=== PATIENT | female | born 1935 | race Caucasian/White ===

== ENCOUNTER 2021-08-18 23:11 | Inpatient (IN) | payer MEDICARE, OTHER ==
[~2021-08-18] VITALS: Ht 157.5 cm; Wt 62.2 kg
[~2021-08-18 23:11] MED LIST: ASCO500T85 PO; ASPI81TA44 PO; CALC-1026 PO; CHOL50004 PO; CLOP75TA15 PO; DULO60CA45 PO; ISOS30TA9 PO; METO25TA6 PO; MULT1TAB PO; OMEG10006 PO; QUET25TA3 PO; ROSU20TA2 PO; SPIRIVA; [UNRECOGNIZED DRUG - CODE] TL
[2021-08-18] MEDS ORDERED: ACETAMINOPHEN ES 500 MG TABLET PO ONE (23:30)
--- NOTE | 2021-08-18 23:46 | NUR ---
LAB AT BEDSIDE.
[2021-08-18] MEDS ORDERED: ACETAMINOPHEN ES 500 MG TABLET ONE (23:47)
[2021-08-18] MEDS ORDERED: METO-357 PO (23:52)
[2021-08-18] MEDS ORDERED: LEVO25TA9 PO (23:52)
[2021-08-18] MEDS ORDERED: MAGN400C PO (23:52)
[2021-08-18] MEDS ORDERED: APIX2.5T PO (23:52)
[2021-08-18] MEDS ORDERED: OMEG1CAP PO (23:52)
[2021-08-18] MEDS ORDERED: CALC-1276 PO (23:52)
[2021-08-18] MEDS ORDERED: ISOS60TA72 PO (23:52)
[2021-08-18] MEDS ORDERED: METH1TAB69 PO (23:52)
[2021-08-18] MEDS ORDERED: POTA-194 PO (23:52)
[2021-08-18] MEDS ORDERED: estradiol TOP (23:52)
[2021-08-18] MEDS ORDERED: QUET100T PO (23:52)
[2021-08-18] MEDS ORDERED: ACET-73 PO (23:52)
[2021-08-18] MEDS ORDERED: ZINC1CAP3 PO (23:52)
[2021-08-18] MEDS ORDERED: FERR325T24 PO (23:52)
[2021-08-18] MEDS ORDERED: FURO20TA4 PO (23:52)
[2021-08-18] MEDS ORDERED: POLY17PO4 PO (23:52)
[2021-08-18] MEDS ORDERED: ESOM40CA52 PO (23:52)
[2021-08-18] MEDS ORDERED: GABA-532 PO ×2 (23:52)
[2021-08-18] MEDS ORDERED: TRAM50TA2 PO (23:52)
[2021-08-18] MEDS ORDERED: FOLI1TAB94 PO (23:52)
[2021-08-18] MEDS ORDERED: BUME1TAB8 PO (23:52)
[2021-08-18] MEDS ORDERED: DOCU100C36 PO (23:52)
[2021-08-18] MEDS ORDERED: FLUT16SP16 NS (23:52)
[2021-08-18] MEDS ORDERED: LEVO500T90 PO (23:56)
[2021-08-19] VITALS (7 sets, daily range): BP systolic 92–118; BP diastolic 45–68
[2021-08-19 00:12] LABS: MEAN CORPUSCULAR HEMOGLOBIN 29.1 uug (24.7-32.8); MEAN CORPUSCULAR VOLUME 87.7 fL (75.5-95.3); PLATELET COUNT (AUTO) 220 K/uL (179-408)
[2021-08-19 00:39] LABS: CARBON DIOXIDE 25 mmol/L (21-32); CHLORIDE 101 mmol/L (98-107); CREATININE 1.3 mg/dL (0.6-1.3); GLUCOSE 92 mg/dL (74-106); POTASSIUM 4.5 mmol/L (3.5-5.1); UREA NITROGEN, BLOOD 19 mg/dL (7-18)
[2021-08-19 00:52] LABS: ALANINE AMINOTRANSFERASE 19 U/L (14-59); ALKALINE PHOSPHATASE 94 U/L (50-136); ASPARTATE AMINOTRANSFERASE 19 U/L (15-37); BILIRUBIN,DIRECT 0.4 mg/dL (0.0-0.2)
[2021-08-19] MEDS ORDERED: CEFTRIAXONE 1 G in IV DEXTROSE 5% 50 ML IV ONE (01:00)
[2021-08-19 01:51] LABS: *BILIRUBIN,URIN NEGATIVE (NEGATIVE); *CLARITY,URINE CLEAR (CLEAR); *COLOR,URINE YELLOW (YELLOW); *KETONES,URINE TRACE (NEGATIVE); *UROBILINOGEN,URINE 0.2 E.U./dl (NORMAL); LEUKOCYTE ESTERASE ,URINE 1+ (NEGATIVE); NITRITE, URINE POSITIVE (NEGATIVE); PH,URINE 6.5 (5.0-8.0); UGLUCOSE NEGATIVE (NEGATIVE)
[2021-08-19 01:52] LABS: *BLOOD, URINE TRACE (NEGATIVE)
[2021-08-19 02:01] LABS: BACTERIA,URINE MANY /HPF (NONE SEEN); SQUAMOUS EPITHELIAL CELL,UR MODERATE /HPF (NONE SEEN); WBC,URINE TNTC /HPF (0-3)
[2021-08-19] MEDS ORDERED: CEFTRIAXONE /D5W 50ML IVPB **ER PYXIS IV ONE (02:03)
--- NOTE | 2021-08-19 03:01 | NUR ---
SIRENA PA PAGED FOR PANEL CALL.
[2021-08-19] MEDS ORDERED: ONDANSETRON 4 MG/2 ML VIAL IV PRN (03:15)
[2021-08-19] MEDS ORDERED: TRAMADOL HCL 50 MG TABLET PO PRN (03:15)
[2021-08-19] MEDS: FUROSEMIDE 40 MG/4 ML VIAL IV ONE ×2 (03:15→07:24)
[2021-08-19] MEDS ORDERED: MAGNESIUM HYDROXIDE 30 ML LIQUID UDC PO PRN (03:15)
[2021-08-19] MEDS ORDERED: REMEDY ESSENTIAL ZINC PASTE 113 GM TP PRN (03:15)
--- NOTE | 2021-08-19 03:39 | NUR ---
GAVE REPORT TO
[2021-08-19] MEDS ORDERED: MAGNESIUM OXIDE 400 MG TABLET PO PRN (04:30)
--- NOTE | 2021-08-19 04:30 | NUR ---
Pt. admitted to tele CCU overflow , under care of NPO Porfirio Dougherty Belongs List completed Pt admitted in stable condition, denied any pain/discomfort upon discharge. VSS. No changes in LOC.
--- NOTE | 2021-08-19 04:39 | NUR ---
received patient from ER DX: ACUTE CHF AND UTI. patient aaox4 verbally responsive and cooperative . afebrile 98.7 F orally . on room air saturation 95% rr 21. afib on the heart monitor rate 93 denies chest pain or discomfort . admitted patient data collected from patient and patient history . belongings at b/s with patient .
--- NOTE | 2021-08-19 05:00 | NUR ---
photo taken on patient sacral area ,near the rectum with redness .she said she just finished using the bedpan . photo taken and wound care consulted .
[2021-08-19] MEDS: LEVOTHYROXINE SODIUM 25 MCG TABLET PO SCH (06:14)
[2021-08-19] MEDS: PANTOPRAZOLE SODIUM 40 MG TABLET.DR PO SCH (06:14)
--- NOTE | 2021-08-19 06:21 | NUR ---
given po medication tolerated with water .
--- NOTE | 2021-08-19 06:58 | NUR ---
called pharmacy c/o missing Lasix patient a new admit from ER as per pharmacy she will have the ordnance engineering technician bring it .
--- NOTE | 2021-08-19 07:28 | NUR ---
patient refused Lasix as per patient it drops her blood pressure and prefers to have Bumex instead endorsed to day shift rn .
[2021-08-19] MEDS: METOPROLOL SUCCINATE XL 50 MG TAB.SR.24H PO SCH ×2 (09:00→17:32)
[2021-08-19] MEDS: APIXABAN 2.5 MG TABLET PO SCH ×2 (09:00→17:00)
[2021-08-19] MEDS ORDERED: Methenamine Hippurate 1 GM) PO SCH (09:00)
[2021-08-19] MEDS: FLUTICASONE PROP NASAL SPRAY 16 GM BOTTLE NS SCH (09:37)
[2021-08-19] MEDS: DULOXETINE 60 MG CAPSULE.DR PO SCH (09:37)
[2021-08-19] MEDS: DOCUSATE SODIUM 100 MG CAPSULE PO SCH ×2 (09:37→17:14)
[2021-08-19] MEDS: FOLIC ACID 1 MG TABLET PO SCH (09:38)
[2021-08-19] MEDS: OMEGA-3 FATTY ACIDS/FISH OIL CAPSULE PO SCH ×2 (09:38→17:14)
[2021-08-19] MEDS: MIRALAX 17 GM POWD.PACK PO SCH (09:48)
[2021-08-19] MEDS: CALCIUM CARB/VITAMIN D 500MG-200UNITS TABLET PO SCH (09:49)
[2021-08-19] MEDS: ZINC SULFATE 220 MG CAPSULE PO SCH (09:49)
[2021-08-19] MEDS: CLOPIDOGREL 75 MG TABLET PO SCH (09:49)
[2021-08-19] MEDS: GABAPENTIN 100 MG CAPSULE PO SCH ×2 (09:52→21:07)
[2021-08-19] MEDS: ISOSORBIDE MONONITRATE 60 MG TAB.SR.24H PO SCH (09:54)
--- NOTE | 2021-08-19 12:46 | NUR ---
WOUND CARE CONSULT: PT EATING AT THIS TIME. REVIEWED CHART, NURSING DOCUMENTATION AND PHOTO WHICH INDICATES PERIANAL REDNESS, PRESENT ON ADMISSION. RECOMMENDATIONS MADE FOR SKIN PROTECTION. DISCUSSED WITH NURSING STAFF. MD IN AGREEMENT WITH PLAN OF CARE. MD IN AGREEMENT WITH PLAN OF CARE.
--- NOTE | 2021-08-19 19:45 | NUR ---
patient had a large BM form stool ,brownish and blackish in color . changed soiled linens and gown incontinent of urine . perineal care done. z guard applied to sacral and bilateral groin area . oral care done . patient able to brush teeth . v/s done wnl .call light placed with in reach . advised to call for help .
[2021-08-19] MEDS: QUETIAPINE FUMARATE 100 MG TABLET PO SCH (21:08)
[2021-08-19] MEDS: ATORVASTATIN 40 MG TABLET PO SCH (21:13)
--- NOTE | 2021-08-19 22:35 | NUR ---
called EPIC service c/o patient afib rate 129 to 145 , patient asymptomatic she is sleeping in bed . no s/s of respiratory distress denies chest pain .spoked with DR:SANCHO SOSA to start patient on amiodarone drip with bolus .
[2021-08-19] MEDS ORDERED: AMIODARONE HCL IV 150 MG in IV DEXTROSE 5% 100 ML IV ONE (22:45)
[2021-08-19] MEDS ORDERED: AMIODARONE HCL 150 MG/3 ML VIAL IV ONE ×2 (22:58→22:59)
[2021-08-19] MEDS: AMIODARONE HCL IV 450 MG in IV DEXTROSE 5% 250 ML IV PRN (23:22)
[2021-08-20] VITALS (8 sets, daily range): BP systolic 98–129; BP diastolic 40–71
[2021-08-20] MEDS: CEFTRIAXONE 1 G in IV DEXTROSE 5% 50 ML IV SCH (02:17)
[2021-08-20 05:45] LABS: HEMATOCRIT 28.3 % (31.2-41.9); MEAN CORPUSCULAR HEMOGLOBIN 28.8 uug (24.7-32.8); MEAN CORPUSCULAR VOLUME 86.9 fL (75.5-95.3); PLATELET COUNT (AUTO) 198 K/uL (179-408)
[2021-08-20 06:03] LABS: NEUTROPHILS % (MANUAL) 0 % (42-75)
[2021-08-20 06:08] LABS: CREATININE 1.1 mg/dL (0.6-1.3); MAGNESIUM 1.8 mg/dL (1.8-2.4); POTASSIUM 3.6 mmol/L (3.5-5.1)
[2021-08-20] MEDS: PANTOPRAZOLE SODIUM 40 MG TABLET.DR PO SCH (06:42)
[2021-08-20] MEDS: LEVOTHYROXINE SODIUM 25 MCG TABLET PO SCH (06:42)
[2021-08-20] MEDS: FLUTICASONE PROP NASAL SPRAY 16 GM BOTTLE NS SCH (09:34)
[2021-08-20] MEDS: DULOXETINE 60 MG CAPSULE.DR PO SCH (09:35)
[2021-08-20] MEDS: OMEGA-3 FATTY ACIDS/FISH OIL CAPSULE PO SCH ×2 (09:35→17:30)
[2021-08-20] MEDS: DOCUSATE SODIUM 100 MG CAPSULE PO SCH ×2 (09:36→17:30)
[2021-08-20] MEDS: FOLIC ACID 1 MG TABLET PO SCH (09:37)
[2021-08-20] MEDS: CALCIUM CARB/VITAMIN D 500MG-200UNITS TABLET PO SCH (09:39)
[2021-08-20] MEDS: GABAPENTIN 100 MG CAPSULE PO SCH ×2 (09:39→20:23)
[2021-08-20] MEDS: MIRALAX 17 GM POWD.PACK PO SCH (09:39)
[2021-08-20] MEDS: CLOPIDOGREL 75 MG TABLET PO SCH (09:40)
[2021-08-20] MEDS: ISOSORBIDE MONONITRATE 60 MG TAB.SR.24H PO SCH (09:47)
[2021-08-20] MEDS: ZINC SULFATE 220 MG CAPSULE PO SCH (09:47)
[2021-08-20] MEDS: METOPROLOL SUCCINATE XL 50 MG TAB.SR.24H PO SCH ×2 (09:47→17:31)
[2021-08-20] MEDS: APIXABAN 2.5 MG TABLET PO SCH ×2 (10:01→17:35)
[2021-08-20] MEDS: AMIODARONE HCL IV 450 MG in IV DEXTROSE 5% 250 ML IV PRN ×2 (16:16→20:19)
--- NOTE | 2021-08-20 19:30 | NUR ---
round made patient aaox3.on amiodarone drip to follow protocol ,afib on the heart monitor rate 82 denies chest or discomfort . patient watching tv.
[2021-08-20] MEDS: QUETIAPINE FUMARATE 100 MG TABLET PO SCH (20:23)
[2021-08-20] MEDS: ATORVASTATIN 40 MG TABLET PO SCH (20:23)
--- NOTE | 2021-08-20 21:00 | NUR ---
patient wants to brush her teeth ,assisted . oral care done . upper and lower partial denture soak overnight placed in denture cup .
--- NOTE | 2021-08-21 00:26 | NUR ---
as per monitoring and evaluation advisor patient converted to sinus rhythm rate of 71, will continue to monitor heart rate and rhythm patient in bed asleep . no s/s of pain .
[2021-08-21] MEDS: CEFTRIAXONE 1 G in IV DEXTROSE 5% 50 ML IV SCH (01:50)
[2021-08-21 04:30] VITALS: BP 103/48
[2021-08-21] MEDS: LEVOTHYROXINE SODIUM 25 MCG TABLET PO SCH (06:08)
[2021-08-21] MEDS: PANTOPRAZOLE SODIUM 40 MG TABLET.DR PO SCH (06:08)
[2021-08-21 08:00] VITALS: BP 118/48
[2021-08-21] MEDS: CLOPIDOGREL 75 MG TABLET PO SCH (08:22)
[2021-08-21] MEDS: OMEGA-3 FATTY ACIDS/FISH OIL CAPSULE PO SCH ×2 (08:23→17:08)
[2021-08-21] MEDS: GABAPENTIN 100 MG CAPSULE PO SCH ×2 (08:23→21:08)
[2021-08-21] MEDS: FOLIC ACID 1 MG TABLET PO SCH (08:23)
[2021-08-21] MEDS: DOCUSATE SODIUM 100 MG CAPSULE PO SCH ×2 (08:23→17:07)
[2021-08-21] MEDS: DULOXETINE 60 MG CAPSULE.DR PO SCH (08:23)
[2021-08-21] MEDS: CALCIUM CARB/VITAMIN D 500MG-200UNITS TABLET PO SCH (08:23)
[2021-08-21] MEDS: ACETAMINOPHEN 325 MG TABLET PO PRN ×2 (08:23→17:08)
[2021-08-21] MEDS: APIXABAN 2.5 MG TABLET PO SCH ×2 (08:24→17:08)
[2021-08-21] MEDS: ZINC SULFATE 220 MG CAPSULE PO SCH (08:34)
[2021-08-21] MEDS: MIRALAX 17 GM POWD.PACK PO SCH (08:34)
[2021-08-21] MEDS: FLUTICASONE PROP NASAL SPRAY 16 GM BOTTLE NS SCH (08:36)
[2021-08-21] MEDS: ISOSORBIDE MONONITRATE 60 MG TAB.SR.24H PO SCH (08:37)
[2021-08-21] MEDS: METOPROLOL SUCCINATE XL 50 MG TAB.SR.24H PO SCH ×2 (08:38→17:08)
[2021-08-21] MEDS: AMIODARONE HCL 200 MG TABLET PO SCH (11:39)
[2021-08-21 11:58] VITALS: BP 120/49
[2021-08-21 16:44] VITALS: BP 117/75
[2021-08-21 20:00] VITALS: BP 122/51
[2021-08-21] MEDS: ATORVASTATIN 40 MG TABLET PO SCH (21:08)
[2021-08-21] MEDS: QUETIAPINE FUMARATE 100 MG TABLET PO SCH (21:09)
[2021-08-22] VITALS (7 sets, daily range): BP systolic 111–137; BP diastolic 45–50
[2021-08-22] MEDS: CEFTRIAXONE 1 G in IV DEXTROSE 5% 50 ML IV SCH (01:15)
[2021-08-22] MEDS: LEVOTHYROXINE SODIUM 25 MCG TABLET PO SCH (06:03)
[2021-08-22] MEDS: PANTOPRAZOLE SODIUM 40 MG TABLET.DR PO SCH (06:03)
[2021-08-22 06:43] LABS: HEMATOCRIT 27.4 % (31.2-41.9); MEAN CORPUSCULAR HEMOGLOBIN 28.2 uug (24.7-32.8); MEAN CORPUSCULAR VOLUME 86.4 fL (75.5-95.3); PLATELET COUNT (AUTO) 226 K/uL (179-408)
[2021-08-22 06:57] LABS: CREATININE 1.1 mg/dL (0.6-1.3); MAGNESIUM 2.2 mg/dL (1.8-2.4); PHOSPHOROUS 3.8 mg/dL (2.5-4.9); POTASSIUM 4.2 mmol/L (3.5-5.1)
[2021-08-22] MEDS: DULOXETINE 60 MG CAPSULE.DR PO SCH (08:52)
[2021-08-22] MEDS: FOLIC ACID 1 MG TABLET PO SCH (08:52)
[2021-08-22] MEDS: CLOPIDOGREL 75 MG TABLET PO SCH (08:52)
[2021-08-22] MEDS: ISOSORBIDE MONONITRATE 60 MG TAB.SR.24H PO SCH (08:52)
[2021-08-22] MEDS: CALCIUM CARB/VITAMIN D 500MG-200UNITS TABLET PO SCH (08:52)
[2021-08-22] MEDS: APIXABAN 2.5 MG TABLET PO SCH ×2 (08:53→15:59)
[2021-08-22] MEDS: OMEGA-3 FATTY ACIDS/FISH OIL CAPSULE PO SCH ×2 (08:53→16:03)
[2021-08-22] MEDS: AMIODARONE HCL 200 MG TABLET PO SCH (08:53)
[2021-08-22] MEDS: DOCUSATE SODIUM 100 MG CAPSULE PO SCH ×2 (08:54→16:03)
[2021-08-22] MEDS: METOPROLOL SUCCINATE XL 50 MG TAB.SR.24H PO SCH ×2 (08:54→15:59)
[2021-08-22] MEDS: ZINC SULFATE 220 MG CAPSULE PO SCH (08:54)
[2021-08-22] MEDS: FLUTICASONE PROP NASAL SPRAY 16 GM BOTTLE NS SCH (08:55)
[2021-08-22] MEDS: GABAPENTIN 100 MG CAPSULE PO SCH (08:58)
[2021-08-22] MEDS: MIRALAX 17 GM POWD.PACK PO SCH (08:58)
[2021-08-22] MEDS ORDERED: BUMETANIDE 1 MG TABLET PO SCH (15:00)
--- NOTE | 2021-08-22 16:54 | NUR ---
PT accepted to ARU. PT is in no acute distress. Call light is within reach. Discharge instructions given to patient. Pt verbalized understanding. IV on left f/a intact and will be left on secondary to pt will continue IV ABX in ARU. Call light is within reach.
[2021-08-22] MEDS ORDERED: MAGN400O6 PO (18:28)
[2021-08-22] MEDS ORDERED: ISOS30TA86 PO (18:28)
[2021-08-22] MEDS ORDERED: AMIO200T5 PO (18:28)
[2021-08-22] MEDS ORDERED: CEFT1VIA15 IV (18:28)
[2021-08-22] MEDS ORDERED: ATOR40TA PO (18:28)
[2021-08-22] MEDS ORDERED: DOCU100C36 PO (18:28)
[2021-08-22] MEDS ORDERED: PANT40TA2 PO (18:32)
== END 2021-08-22 17:00 | DRG 872 ==
LOC: ER 23:25 → CCU 08-19 04:09 → TELE-TD3 08-20 05:50 → MEDSURG3 08-22 10:50
PROVIDERS: ADMIT Nurse Practitioner Acute Care
DX: A41.9 Sepsis, unspecified organism (principal); N39.0 Urinary tract infection, site not specified; N10 Acute pyelonephritis; J98.11 Atelectasis; E66.9 Obesity, unspecified; E78.5 Hyperlipidemia, unspecified; E88.09 Other disorders of plasma-protein metabolism, not elsewhere classified; F32.A Depression, unspecified; K21.9 Gastro-esophageal reflux disease without esophagitis; R32 Unspecified urinary incontinence; Z87.440 Personal history of urinary (tract) infections; J44.9 Chronic obstructive pulmonary disease, unspecified; R53.1 Weakness; M19.90 Unspecified osteoarthritis, unspecified site; M06.9 Rheumatoid arthritis, unspecified; Z68.25 Body mass index [BMI] 25.0-25.9, adult; I10 Essential (primary) hypertension; I35.1 Nonrheumatic aortic (valve) insufficiency; Z98.61 Coronary angioplasty status; R93.1 Abnormal findings on diagnostic imaging of heart and coronary circulation; I48.0 Paroxysmal atrial fibrillation
CPT/HCPCS: 36415; 70030-TC; 71045; 76770; 83605; 83735; 84100; 84484; 85025; 87040; 87086; 93005; 93307; 97161; A4663; A9150; G0378; J0282; J0696; J1940; J3535; J7050

== ENCOUNTER 2021-08-22 17:42 | Inpatient (IN) | payer MEDICARE, OTHER ==
[~2021-08-22] VITALS: Ht 157.5 cm; Wt 59.4 kg
[~2021-08-22 17:42] MED LIST changes: +ACET-73 PO; +APIX2.5T PO; -ASCO500T85 PO; -ASPI81TA44 PO; +BUME1TAB8 PO; -CALC-1026 PO; +CALC-1276 PO; -CHOL50004 PO; +DOCU100C36 PO; +ESOM40CA52 PO; +FERR325T24 PO; +FLUT16SP16 NS; +FOLI1TAB94 PO; +FURO20TA4 PO; +GABA-532 PO; -ISOS30TA9 PO; +ISOS60TA72 PO; +LEVO25TA9 PO; +LEVO500T90 PO; +MAGN400C PO; +METH1TAB69 PO; +METO-357 PO; -METO25TA6 PO; -MULT1TAB PO; -OMEG10006 PO; +OMEG1CAP PO; +POLY17PO4 PO; +POTA-194 PO; +QUET100T PO; -QUET25TA3 PO; -SPIRIVA; +TRAM50TA2 PO; +ZINC1CAP3 PO; +estradiol TOP
[2021-08-22 17:49] VITALS: BP 151/61
[2021-08-22] MEDS ORDERED: AMIO200T5 PO (18:28)
[2021-08-22] MEDS ORDERED: ISOS30TA86 PO (18:28)
[2021-08-22] MEDS ORDERED: CEFT1VIA15 IV (18:28)
[2021-08-22] MEDS ORDERED: MAGN400O6 PO (18:28)
[2021-08-22] MEDS ORDERED: DOCU100C36 PO (18:28)
[2021-08-22] MEDS ORDERED: ATOR40TA PO (18:28)
[2021-08-22] MEDS ORDERED: PANT40TA2 PO (18:32)
[2021-08-22 20:00] VITALS: BP 127/44
[2021-08-22] MEDS ORDERED: MAGNESIUM HYDROXIDE 30 ML LIQUID UDC PO PRN (20:30)
[2021-08-22] MEDS ORDERED: ACETAMINOPHEN ES 500 MG TABLET PO PRN (20:30)
--- NOTE | 2021-08-22 20:30 | NUR ---
RECEIVED PATIENT AWAKE IN BED. A/O X3. VERY PLEASANT WHEN APPROACHED. DENIES ANY PAIN OR DISCOMFORT. NPO RESP. DISTRESS NOTED. VS WNL. BED ALARM ON. PUREWICK IN PLACE. CALL LIGHT IN REACH. ALL NEEDS ATTENDED. WILL CONTINUE TO MONITOR AND ASSESS.
[2021-08-22] MEDS: ATORVASTATIN 40 MG TABLET PO SCH (20:58)
[2021-08-22] MEDS: QUETIAPINE FUMARATE 100 MG TABLET PO SCH (20:59)
[2021-08-22] MEDS: GABAPENTIN 100 MG CAPSULE PO SCH (20:59)
[2021-08-23] MEDS: CEFTRIAXONE 1 G in IV DEXTROSE 5% 50 ML IV SCH (01:48)
[2021-08-23 04:06] VITALS: BP 111/48
[2021-08-23] MEDS: PANTOPRAZOLE SODIUM 40 MG TABLET.DR PO SCH ×2 (06:09→06:13)
[2021-08-23] MEDS: LEVOTHYROXINE SODIUM 25 MCG TABLET PO SCH (06:09)
--- NOTE | 2021-08-23 06:14 | NUR ---
PATIENT AWAKE IN BED. SLEPT WELL THROUGHOUT THE NIGHT. DENIES ANY PAIN OR DISCOMFORT. NO RESP. DISTRESS NOTED. VS WNL. PATIENT REFUSED TO TAKE PO PROTONIX AT THIS TIME. CALL LIGHT IN REACH. ALL NEEDS ATTENDED. WILL CONTINUE TO MONITOR AND ASSESS.
[2021-08-23 07:50] VITALS: BP 138/44
[2021-08-23] MEDS ORDERED: ISOSORBIDE MONONITRATE 30 MG TAB.SR.24H PO SCH (09:00)
[2021-08-23] MEDS ORDERED: DULOXETINE 60 MG CAPSULE.DR PO SCH (09:00)
[2021-08-23] MEDS ORDERED: DOCUSATE SODIUM 100 MG CAPSULE PO SCH (09:00)
[2021-08-23] MEDS: MIRALAX 17 GM POWD.PACK PO SCH (09:07)
[2021-08-23] MEDS: ZINC SULFATE 220 MG CAPSULE PO SCH (09:07)
[2021-08-23] MEDS: OMEGA-3 FATTY ACIDS/FISH OIL CAPSULE PO SCH ×2 (09:08→16:56)
[2021-08-23] MEDS: GABAPENTIN 100 MG CAPSULE PO SCH ×2 (09:08→20:58)
[2021-08-23] MEDS: ISOSORBIDE MONONITRATE 60 MG TAB.SR.24H PO SCH (09:08)
[2021-08-23] MEDS: CLOPIDOGREL 75 MG TABLET PO SCH (09:09)
[2021-08-23] MEDS: BUMETANIDE 1 MG TABLET PO SCH (09:09)
[2021-08-23] MEDS: CALCIUM CARB/VITAMIN D 500MG-200UNITS TABLET PO SCH (09:09)
[2021-08-23] MEDS: AMIODARONE HCL 200 MG TABLET PO SCH (09:09)
[2021-08-23] MEDS: FOLIC ACID 1 MG TABLET PO SCH (09:09)
[2021-08-23] MEDS: DOCUSATE SODIUM 100 MG CAPSULE PO SCH ×2 (09:09→16:56)
[2021-08-23] MEDS: METOPROLOL SUCCINATE XL 50 MG TAB.SR.24H PO SCH ×2 (09:10→21:04)
[2021-08-23] MEDS: FLUTICASONE PROP NASAL SPRAY 16 GM BOTTLE NS SCH (09:11)
[2021-08-23] MEDS: APIXABAN 2.5 MG TABLET PO SCH ×2 (09:13→17:04)
[2021-08-23] MEDS ORDERED: DULOXETINE 60 MG CAPSULE.DR PO ONE (10:15)
[2021-08-23 15:25] VITALS: BP 114/50
[2021-08-23 20:14] VITALS: BP 143/61
--- NOTE | 2021-08-23 20:45 | NUR ---
AAOx4 Admitted for Sepsis/UTI . All needs attended. VSS. Tolerated po meds well. Incontinent of bowel and bladder. Fall precautions maintained. Siderails up for safety. Will monitor IV ABT given as scheduled. No acute distress noted.
[2021-08-23] MEDS: ATORVASTATIN 40 MG TABLET PO SCH (20:58)
[2021-08-23] MEDS: QUETIAPINE FUMARATE 100 MG TABLET PO SCH (20:59)
[2021-08-24] MEDS: CEFTRIAXONE 1 G in IV DEXTROSE 5% 50 ML IV SCH (01:40)
[2021-08-24 04:33] VITALS: BP 136/56
[2021-08-24] MEDS: PANTOPRAZOLE SODIUM 40 MG TABLET.DR PO SCH (06:01)
[2021-08-24] MEDS: LEVOTHYROXINE SODIUM 25 MCG TABLET PO SCH (06:01)
[2021-08-24 08:13] VITALS: BP 143/48
[2021-08-24] MEDS: APIXABAN 2.5 MG TABLET PO SCH ×2 (08:14→16:52)
[2021-08-24] MEDS: ISOSORBIDE MONONITRATE 60 MG TAB.SR.24H PO SCH (08:16)
[2021-08-24] MEDS: BUMETANIDE 1 MG TABLET PO SCH (08:16)
[2021-08-24] MEDS: GABAPENTIN 100 MG CAPSULE PO SCH ×2 (08:16→20:32)
[2021-08-24] MEDS: METOPROLOL SUCCINATE XL 50 MG TAB.SR.24H PO SCH ×2 (08:17→20:31)
[2021-08-24] MEDS: CALCIUM CARB/VITAMIN D 500MG-200UNITS TABLET PO SCH (08:17)
[2021-08-24] MEDS: FOLIC ACID 1 MG TABLET PO SCH (08:17)
[2021-08-24] MEDS: AMIODARONE HCL 200 MG TABLET PO SCH (08:17)
[2021-08-24] MEDS: ZINC SULFATE 220 MG CAPSULE PO SCH (08:17)
[2021-08-24] MEDS: FLUTICASONE PROP NASAL SPRAY 16 GM BOTTLE NS SCH (08:18)
[2021-08-24] MEDS: OMEGA-3 FATTY ACIDS/FISH OIL CAPSULE PO SCH ×2 (08:18→16:51)
[2021-08-24] MEDS: CLOPIDOGREL 75 MG TABLET PO SCH (08:18)
[2021-08-24] MEDS: MIRALAX 17 GM POWD.PACK PO SCH (08:18)
[2021-08-24] MEDS: DOCUSATE SODIUM 100 MG CAPSULE PO SCH ×2 (08:18→16:51)
[2021-08-24] MEDS: DULOXETINE 60 MG CAPSULE.DR PO SCH (08:23)
--- NOTE | 2021-08-24 15:31 | NUR ---
INTERDISCIPLINARY TEAM CONFERENCE
[2021-08-24 16:01] VITALS: BP 136/53
--- NOTE | 2021-08-24 17:50 | NUR ---
no distress noted during shift, patient is noncompliant with diet instructions, risks and benefits explained, patient verbalized understanding of it, continue to monitor
[2021-08-24 20:06] VITALS: BP 108/44
[2021-08-24] MEDS: QUETIAPINE FUMARATE 100 MG TABLET PO SCH (20:29)
[2021-08-24] MEDS: ATORVASTATIN 40 MG TABLET PO SCH (20:29)
[2021-08-25] MEDS: CEFTRIAXONE 1 G in IV DEXTROSE 5% 50 ML IV SCH (01:13)
[2021-08-25 03:40] VITALS: BP 119/45
[2021-08-25] MEDS: PANTOPRAZOLE SODIUM 40 MG TABLET.DR PO SCH (06:22)
[2021-08-25] MEDS: LEVOTHYROXINE SODIUM 25 MCG TABLET PO SCH (06:22)
[2021-08-25 07:55] VITALS: BP 102/45
[2021-08-25] MEDS: MIRALAX 17 GM POWD.PACK PO SCH (08:27)
[2021-08-25] MEDS: BUMETANIDE 1 MG TABLET PO SCH (08:27)
[2021-08-25] MEDS: DULOXETINE 60 MG CAPSULE.DR PO SCH (08:28)
[2021-08-25] MEDS: OMEGA-3 FATTY ACIDS/FISH OIL CAPSULE PO SCH ×2 (08:28→16:28)
[2021-08-25] MEDS: GABAPENTIN 100 MG CAPSULE PO SCH ×2 (08:28→20:43)
[2021-08-25] MEDS: CALCIUM CARB/VITAMIN D 500MG-200UNITS TABLET PO SCH (08:28)
[2021-08-25] MEDS: DOCUSATE SODIUM 100 MG CAPSULE PO SCH ×2 (08:28→16:28)
[2021-08-25] MEDS: AMIODARONE HCL 200 MG TABLET PO SCH (08:37)
[2021-08-25] MEDS: METOPROLOL SUCCINATE XL 50 MG TAB.SR.24H PO SCH ×2 (08:37→20:42)
[2021-08-25] MEDS: APIXABAN 2.5 MG TABLET PO SCH ×2 (08:38→16:29)
[2021-08-25] MEDS: CLOPIDOGREL 75 MG TABLET PO SCH (08:38)
--- NOTE | 2021-08-25 08:40 | NUR ---
Received patient from priming machine operator nurse. Patient was sleeping. No distress noted and no verbalization of pain. Patient is having breakfast now.
[2021-08-25] MEDS: ZINC SULFATE 220 MG CAPSULE PO SCH (08:41)
[2021-08-25] MEDS: FOLIC ACID 1 MG TABLET PO SCH (08:43)
[2021-08-25] MEDS: FLUTICASONE PROP NASAL SPRAY 16 GM BOTTLE NS SCH (09:34)
[2021-08-25] MEDS: ISOSORBIDE MONONITRATE 60 MG TAB.SR.24H PO SCH (11:14)
[2021-08-25] MEDS: ENSURE ENLIVE (VAN) 240 ML LIQUID PO SCH (12:51)
--- NOTE | 2021-08-25 14:50 | NUR ---
INDIVIDUALIZED PLAN OF CARE
[2021-08-25 16:01] VITALS: BP 103/42
[2021-08-25] MEDS: ATORVASTATIN 40 MG TABLET PO SCH (20:42)
[2021-08-25] MEDS: QUETIAPINE FUMARATE 100 MG TABLET PO SCH (20:43)
[2021-08-25 20:54] VITALS: BP 128/69
[2021-08-26 04:46] VITALS: BP 101/36
[2021-08-26] MEDS: PANTOPRAZOLE SODIUM 40 MG TABLET.DR PO SCH (06:15)
[2021-08-26] MEDS: LEVOTHYROXINE SODIUM 25 MCG TABLET PO SCH (06:16)
--- NOTE | 2021-08-26 08:00 | NUR ---
Seen by DR Berumen with new order to change her diet to Regular Diet order. noted and carried out.
[2021-08-26 08:39] VITALS: BP 119/37
[2021-08-26] MEDS: FLUTICASONE PROP NASAL SPRAY 16 GM BOTTLE NS SCH (09:24)
[2021-08-26] MEDS: DULOXETINE 60 MG CAPSULE.DR PO SCH (09:24)
[2021-08-26] MEDS: ISOSORBIDE MONONITRATE 60 MG TAB.SR.24H PO SCH (09:25)
[2021-08-26] MEDS: ZINC SULFATE 220 MG CAPSULE PO SCH (09:26)
[2021-08-26] MEDS: METOPROLOL SUCCINATE XL 50 MG TAB.SR.24H PO SCH ×2 (09:26→21:13)
[2021-08-26] MEDS: APIXABAN 2.5 MG TABLET PO SCH ×2 (09:27→16:55)
[2021-08-26] MEDS: AMIODARONE HCL 200 MG TABLET PO SCH (09:27)
[2021-08-26] MEDS: GABAPENTIN 100 MG CAPSULE PO SCH ×2 (09:27→21:12)
[2021-08-26] MEDS: DOCUSATE SODIUM 100 MG CAPSULE PO SCH ×2 (09:28→16:53)
[2021-08-26] MEDS: CLOPIDOGREL 75 MG TABLET PO SCH (09:28)
[2021-08-26] MEDS: CALCIUM CARB/VITAMIN D 500MG-200UNITS TABLET PO SCH (09:28)
[2021-08-26] MEDS: BUMETANIDE 1 MG TABLET PO SCH (09:28)
[2021-08-26] MEDS: OMEGA-3 FATTY ACIDS/FISH OIL CAPSULE PO SCH ×2 (09:28→16:54)
[2021-08-26] MEDS: MIRALAX 17 GM POWD.PACK PO SCH (09:28)
[2021-08-26] MEDS: FOLIC ACID 1 MG TABLET PO SCH (09:28)
[2021-08-26] MEDS: ENSURE ENLIVE (VAN) 240 ML LIQUID PO SCH (09:38)
[2021-08-26] MEDS: TRAMADOL HCL 50 MG TABLET PO PRN (12:32)
[2021-08-26 15:15] VITALS: BP 115/64
--- NOTE | 2021-08-26 16:14 | NUR ---
Pt remain AAO X 4 able to let her needs known ,respiration even and unlabored at room air ,no distress noted during shift, patient up in a W/C able to ambulate with FWW to the BR. Up with PT for therapeutic exercises . Got new order for Regular Diet , patient verbalized feeling better. Medicated X 1 with Ultram for C/O of pain , safety precautions in place will continue to monitor closely
[2021-08-26 20:00] VITALS: BP 123/68
[2021-08-26] MEDS: QUETIAPINE FUMARATE 100 MG TABLET PO SCH (21:12)
[2021-08-26] MEDS: ATORVASTATIN 40 MG TABLET PO SCH (21:12)
[2021-08-27] MEDS: TRAMADOL HCL 50 MG TABLET PO PRN ×2 (00:52→23:56)
[2021-08-27 04:00] VITALS: BP 103/55
[2021-08-27 04:00] LABS: *BILIRUBIN,URIN NEGATIVE (NEGATIVE); *BLOOD, URINE NEGATIVE (NEGATIVE); *CLARITY,URINE CLEAR (CLEAR); *COLOR,URINE YELLOW (YELLOW); *KETONES,URINE NEGATIVE (NEGATIVE); *UROBILINOGEN,URINE 0.2 E.U./dl (NORMAL); LEUKOCYTE ESTERASE ,URINE NEGATIVE (NEGATIVE); NITRITE, URINE NEGATIVE (NEGATIVE); PH,URINE 5.5 (5.0-8.0); UGLUCOSE NEGATIVE (NEGATIVE)
[2021-08-27] MEDS: LEVOTHYROXINE SODIUM 25 MCG TABLET PO SCH (06:00)
[2021-08-27] MEDS: PANTOPRAZOLE SODIUM 40 MG TABLET.DR PO SCH (06:00)
[2021-08-27 07:53] VITALS: BP 105/32
[2021-08-27] MEDS: BUMETANIDE 1 MG TABLET PO SCH (08:56)
[2021-08-27] MEDS: ENSURE ENLIVE (VAN) 240 ML LIQUID PO SCH (08:56)
[2021-08-27] MEDS: FLUTICASONE PROP NASAL SPRAY 16 GM BOTTLE NS SCH (08:56)
[2021-08-27] MEDS: OMEGA-3 FATTY ACIDS/FISH OIL CAPSULE PO SCH ×2 (08:56→17:33)
[2021-08-27] MEDS: DOCUSATE SODIUM 100 MG CAPSULE PO SCH ×2 (08:56→17:33)
[2021-08-27] MEDS: CALCIUM CARB/VITAMIN D 500MG-200UNITS TABLET PO SCH (08:57)
[2021-08-27] MEDS: GABAPENTIN 100 MG CAPSULE PO SCH ×2 (08:57→21:55)
[2021-08-27] MEDS: AMIODARONE HCL 200 MG TABLET PO SCH (08:58)
[2021-08-27] MEDS: ZINC SULFATE 220 MG CAPSULE PO SCH (08:58)
[2021-08-27] MEDS: FOLIC ACID 1 MG TABLET PO SCH (08:58)
[2021-08-27] MEDS: DULOXETINE 60 MG CAPSULE.DR PO SCH (08:58)
[2021-08-27] MEDS: MIRALAX 17 GM POWD.PACK PO SCH (08:59)
[2021-08-27] MEDS: METOPROLOL SUCCINATE XL 50 MG TAB.SR.24H PO SCH ×2 (09:00→21:00)
[2021-08-27] MEDS: ISOSORBIDE MONONITRATE 60 MG TAB.SR.24H PO SCH (09:01)
[2021-08-27] MEDS: APIXABAN 2.5 MG TABLET PO SCH ×2 (09:03→17:34)
[2021-08-27] MEDS: CLOPIDOGREL 75 MG TABLET PO SCH (09:20)
[2021-08-27 17:10] VITALS: BP 111/32
--- NOTE | 2021-08-27 18:19 | NUR ---
Pt received Pt AAO X 4 able to let her needs known ,respiration even and unlabored at room air ,no distress noted during shift, patient up in a W/C able to ambulate with FWW to the BR. Up with PT/OT for therapeutic exercises had a shower today , No C/O of pain , safety precautions in place will continue to monitor closely
--- NOTE | 2021-08-27 19:15 | NUR ---
Received patient on wheelchair, alert and oriented x4, no tin respiratory distress, no complaint of pain, Safety precautions provided, call light placed within reach.
[2021-08-27 20:00] VITALS: BP 113/40
[2021-08-27] MEDS: ATORVASTATIN 40 MG TABLET PO SCH (21:55)
[2021-08-27] MEDS: QUETIAPINE FUMARATE 100 MG TABLET PO SCH (21:56)
[2021-08-28 04:00] VITALS: BP 98/50
--- NOTE | 2021-08-28 04:55 | NUR ---
Slept well, no shortness of breath complaint of pain, Ultram 50mg PO given as PRN given once within the shift, went back to sleep. For continuity of care.
[2021-08-28] MEDS: PANTOPRAZOLE SODIUM 40 MG TABLET.DR PO SCH (06:10)
[2021-08-28] MEDS: LEVOTHYROXINE SODIUM 25 MCG TABLET PO SCH (06:10)
[2021-08-28 07:30] VITALS: BP 135/52
[2021-08-28] MEDS: FOLIC ACID 1 MG TABLET PO SCH (08:00)
[2021-08-28] MEDS: CALCIUM CARB/VITAMIN D 500MG-200UNITS TABLET PO SCH (08:00)
[2021-08-28] MEDS: DULOXETINE 60 MG CAPSULE.DR PO SCH (08:01)
[2021-08-28] MEDS: GABAPENTIN 100 MG CAPSULE PO SCH ×2 (08:01→20:30)
[2021-08-28] MEDS: METOPROLOL SUCCINATE XL 50 MG TAB.SR.24H PO SCH ×2 (08:03→20:33)
[2021-08-28] MEDS: DOCUSATE SODIUM 100 MG CAPSULE PO SCH ×2 (08:03→16:20)
[2021-08-28] MEDS: OMEGA-3 FATTY ACIDS/FISH OIL CAPSULE PO SCH ×2 (08:03→16:20)
[2021-08-28] MEDS: ZINC SULFATE 220 MG CAPSULE PO SCH (08:03)
[2021-08-28] MEDS: CLOPIDOGREL 75 MG TABLET PO SCH (08:03)
[2021-08-28] MEDS: ISOSORBIDE MONONITRATE 60 MG TAB.SR.24H PO SCH (08:03)
[2021-08-28] MEDS: BUMETANIDE 1 MG TABLET PO SCH (08:04)
[2021-08-28] MEDS: AMIODARONE HCL 200 MG TABLET PO SCH (08:04)
[2021-08-28] MEDS: APIXABAN 2.5 MG TABLET PO SCH ×2 (08:05→16:20)
[2021-08-28] MEDS: FLUTICASONE PROP NASAL SPRAY 16 GM BOTTLE NS SCH (08:06)
[2021-08-28] MEDS: MIRALAX 17 GM POWD.PACK PO SCH (08:06)
[2021-08-28] MEDS: ENSURE ENLIVE (VAN) 240 ML LIQUID PO SCH (08:06)
[2021-08-28 16:00] VITALS: BP 102/84
[2021-08-28 20:15] VITALS: BP 121/57
[2021-08-28] MEDS: ATORVASTATIN 40 MG TABLET PO SCH (20:30)
[2021-08-28] MEDS: QUETIAPINE FUMARATE 100 MG TABLET PO SCH (20:33)
[2021-08-29 05:01] VITALS: BP 103/48
[2021-08-29] MEDS: LEVOTHYROXINE SODIUM 25 MCG TABLET PO SCH (05:34)
[2021-08-29] MEDS: PANTOPRAZOLE SODIUM 40 MG TABLET.DR PO SCH (05:34)
[2021-08-29] MEDS: TRAMADOL HCL 50 MG TABLET PO PRN (05:34)
--- NOTE | 2021-08-29 06:39 | NUR ---
Medicated once for pain with relief. No further complaint presented. Slept well. No significant event reported all night. Continue current rehab plan of care.
[2021-08-29 07:49] VITALS: BP 108/55
[2021-08-29] MEDS: CALCIUM CARB/VITAMIN D 500MG-200UNITS TABLET PO SCH (08:06)
[2021-08-29] MEDS: DULOXETINE 60 MG CAPSULE.DR PO SCH (08:06)
[2021-08-29] MEDS: CLOPIDOGREL 75 MG TABLET PO SCH (08:06)
[2021-08-29] MEDS: AMIODARONE HCL 200 MG TABLET PO SCH (08:07)
[2021-08-29] MEDS: OMEGA-3 FATTY ACIDS/FISH OIL CAPSULE PO SCH ×2 (08:07→17:24)
[2021-08-29] MEDS: FOLIC ACID 1 MG TABLET PO SCH (08:07)
[2021-08-29] MEDS: ZINC SULFATE 220 MG CAPSULE PO SCH (08:07)
[2021-08-29] MEDS: GABAPENTIN 100 MG CAPSULE PO SCH ×2 (08:08→20:43)
[2021-08-29] MEDS: ISOSORBIDE MONONITRATE 60 MG TAB.SR.24H PO SCH (08:08)
[2021-08-29] MEDS: DOCUSATE SODIUM 100 MG CAPSULE PO SCH ×2 (08:08→17:24)
[2021-08-29] MEDS: METOPROLOL SUCCINATE XL 50 MG TAB.SR.24H PO SCH ×2 (08:09→20:55)
[2021-08-29] MEDS: APIXABAN 2.5 MG TABLET PO SCH ×2 (08:10→17:25)
[2021-08-29] MEDS: FLUTICASONE PROP NASAL SPRAY 16 GM BOTTLE NS SCH (08:11)
[2021-08-29] MEDS: ENSURE ENLIVE (VAN) 240 ML LIQUID PO SCH (08:12)
[2021-08-29] MEDS: BUMETANIDE 1 MG TABLET PO SCH (08:12)
[2021-08-29] MEDS: MIRALAX 17 GM POWD.PACK PO SCH (08:12)
[2021-08-29 16:12] VITALS: BP 132/69
[2021-08-29 20:00] VITALS: BP 131/53
[2021-08-29] MEDS: ATORVASTATIN 40 MG TABLET PO SCH (20:42)
[2021-08-29] MEDS: QUETIAPINE FUMARATE 100 MG TABLET PO SCH (20:43)
[2021-08-30] MEDS: TRAMADOL HCL 50 MG TABLET PO PRN (00:49)
[2021-08-30 04:00] VITALS: BP 125/57
[2021-08-30] MEDS: PANTOPRAZOLE SODIUM 40 MG TABLET.DR PO SCH (05:42)
[2021-08-30] MEDS: LEVOTHYROXINE SODIUM 25 MCG TABLET PO SCH (05:42)
[2021-08-30 08:00] VITALS: BP 126/56
[2021-08-30] MEDS: AMIODARONE HCL 200 MG TABLET PO SCH (08:02)
[2021-08-30] MEDS: DULOXETINE 60 MG CAPSULE.DR PO SCH (08:02)
[2021-08-30] MEDS: CALCIUM CARB/VITAMIN D 500MG-200UNITS TABLET PO SCH (08:03)
[2021-08-30] MEDS: FOLIC ACID 1 MG TABLET PO SCH (08:03)
[2021-08-30] MEDS: BUMETANIDE 1 MG TABLET PO SCH (08:03)
[2021-08-30] MEDS: CLOPIDOGREL 75 MG TABLET PO SCH (08:03)
[2021-08-30] MEDS: GABAPENTIN 100 MG CAPSULE PO SCH ×2 (08:03→20:30)
[2021-08-30] MEDS: DOCUSATE SODIUM 100 MG CAPSULE PO SCH ×2 (08:03→16:07)
[2021-08-30] MEDS: ZINC SULFATE 220 MG CAPSULE PO SCH (08:04)
[2021-08-30] MEDS: METOPROLOL SUCCINATE XL 50 MG TAB.SR.24H PO SCH ×2 (08:04→20:32)
[2021-08-30] MEDS: APIXABAN 2.5 MG TABLET PO SCH ×2 (08:17→16:16)
[2021-08-30] MEDS: FLUTICASONE PROP NASAL SPRAY 16 GM BOTTLE NS SCH (08:19)
[2021-08-30] MEDS: OMEGA-3 FATTY ACIDS/FISH OIL CAPSULE PO SCH ×2 (08:20→16:07)
[2021-08-30] MEDS: ENSURE ENLIVE (VAN) 240 ML LIQUID PO SCH ×2 (08:20→16:23)
[2021-08-30] MEDS: MIRALAX 17 GM POWD.PACK PO SCH (08:20)
[2021-08-30] MEDS: ISOSORBIDE MONONITRATE 60 MG TAB.SR.24H PO SCH (08:22)
--- NOTE | 2021-08-30 08:30 | NUR ---
patient called and stated feels angina pain, repositioned, assess for pain, 07/05, denied radiating to shoulder, jaw, and to arm, denied pain in upper back, patient stated it is more in right side of chest, patient stated she has a history of it, and would like to take her isosorbide, no sweat noted, no acute distress noted, alert, oriented x4, sat down edge of the bed, ready to eat her breakfast, isosorbide administered as ordered, patient stated she already feels better by sitting edge of the bed. continue to monitor closely. Addendum: 08/30/21 at 1521 by KATYA HUDSON RN, RN above is the late charting for 08/29/21 Addendum: 08/30/21 at 1522 by KATYA HUDSON RN, RN asked patient yesterday couple times a day about pain, patient denied each time any pain, no distress noted either, tolerated daily activities good.
--- NOTE | 2021-08-30 15:11 | NUR ---
patient denied any chest pain, asked couple times, patient stated she feels fine, participated with PT, OT services and denied any pain.
[2021-08-30 15:30] VITALS: BP 108/60
--- NOTE | 2021-08-30 18:34 | NUR ---
patient denied any chest pain asked through out the shift multiple times, tolerated PT, OT services very well, no distress noted.
[2021-08-30 19:49] VITALS: BP 112/46
[2021-08-30] MEDS: ATORVASTATIN 40 MG TABLET PO SCH (20:30)
[2021-08-30] MEDS: QUETIAPINE FUMARATE 100 MG TABLET PO SCH (20:31)
[2021-08-31 04:19] VITALS: BP 108/52
[2021-08-31] MEDS: PANTOPRAZOLE SODIUM 40 MG TABLET.DR PO SCH (06:24)
[2021-08-31] MEDS: LEVOTHYROXINE SODIUM 25 MCG TABLET PO SCH (06:24)
[2021-08-31 07:30] VITALS: BP 124/61
--- NOTE | 2021-08-31 08:17 | NUR ---
INTERDISCIPLINARY TEAM CONFERENCE
[2021-08-31] MEDS: DULOXETINE 60 MG CAPSULE.DR PO SCH (08:49)
[2021-08-31] MEDS: FLUTICASONE PROP NASAL SPRAY 16 GM BOTTLE NS SCH (08:49)
[2021-08-31] MEDS: CALCIUM CARB/VITAMIN D 500MG-200UNITS TABLET PO SCH (08:49)
[2021-08-31] MEDS: CLOPIDOGREL 75 MG TABLET PO SCH (08:49)
[2021-08-31] MEDS: ZINC SULFATE 220 MG CAPSULE PO SCH (08:49)
[2021-08-31] MEDS: DOCUSATE SODIUM 100 MG CAPSULE PO SCH ×2 (08:49→16:53)
[2021-08-31] MEDS: OMEGA-3 FATTY ACIDS/FISH OIL CAPSULE PO SCH ×2 (08:49→16:53)
[2021-08-31] MEDS: APIXABAN 2.5 MG TABLET PO SCH ×2 (08:50→16:54)
[2021-08-31] MEDS: ISOSORBIDE MONONITRATE 60 MG TAB.SR.24H PO SCH (08:51)
[2021-08-31] MEDS: MIRALAX 17 GM POWD.PACK PO SCH (08:51)
[2021-08-31] MEDS: AMIODARONE HCL 200 MG TABLET PO SCH (08:51)
[2021-08-31] MEDS: METOPROLOL SUCCINATE XL 50 MG TAB.SR.24H PO SCH ×2 (08:51→21:13)
[2021-08-31] MEDS: BUMETANIDE 1 MG TABLET PO SCH (08:52)
[2021-08-31] MEDS: ENSURE ENLIVE (VAN) 240 ML LIQUID PO SCH ×2 (08:53→16:54)
[2021-08-31] MEDS: FOLIC ACID 1 MG TABLET PO SCH (08:54)
[2021-08-31] MEDS: GABAPENTIN 100 MG CAPSULE PO SCH ×2 (08:56→21:12)
--- NOTE | 2021-08-31 10:37 | NUR ---
SITTING IN CHAIR, COMFORTABLE, DID HER OWN GROOMING.
--- NOTE | 2021-08-31 11:15 | NUR ---
PATIENT REASSIGNMENT ASSUMED CARE OF THIS PATIENT AT THIS TIME SHE IS ALERT ORIENTED AND COMFORTABLE WILL CONTINUE WITH PT/OT ORDERED.WILL CONTINUE TO OBSERVE.
[2021-08-31 15:03] VITALS: BP 118/65
[2021-08-31 20:00] VITALS: BP 123/40
--- NOTE | 2021-08-31 20:30 | NUR ---
RECEIVED PATIENT TO CARE. SHE IS NOTED SITTING IN A CHAIR IN HER ROOM. SHE IS A/O X 3 AND ABLE TO MAKE HER NEEDS KNOWN. SHE IS CALM AND PLEASANT UPON APPROACHED. NO DISTRESS NOTED. HER V/S ARE STABLE. SHE DENIED PAIN. SAFETY AND FALL PRECAUTIONS ARE IN PLACE. WILL CONTINUE TO MONITOR.
[2021-08-31] MEDS: ATORVASTATIN 40 MG TABLET PO SCH (21:11)
[2021-08-31] MEDS: QUETIAPINE FUMARATE 100 MG TABLET PO SCH (21:12)
[2021-09-01 04:00] VITALS: BP 102/41
[2021-09-01] MEDS: PANTOPRAZOLE SODIUM 40 MG TABLET.DR PO SCH (06:33)
[2021-09-01] MEDS: LEVOTHYROXINE SODIUM 25 MCG TABLET PO SCH (06:34)
[2021-09-01 07:57] VITALS: BP 124/43
[2021-09-01] MEDS: FLUTICASONE PROP NASAL SPRAY 16 GM BOTTLE NS SCH (08:58)
[2021-09-01] MEDS: DOCUSATE SODIUM 100 MG CAPSULE PO SCH ×2 (08:59→17:00)
[2021-09-01] MEDS: ZINC SULFATE 220 MG CAPSULE PO SCH (08:59)
[2021-09-01] MEDS: DULOXETINE 60 MG CAPSULE.DR PO SCH (08:59)
[2021-09-01] MEDS: CALCIUM CARB/VITAMIN D 500MG-200UNITS TABLET PO SCH (08:59)
[2021-09-01] MEDS: OMEGA-3 FATTY ACIDS/FISH OIL CAPSULE PO SCH ×2 (08:59→16:55)
[2021-09-01] MEDS: CLOPIDOGREL 75 MG TABLET PO SCH (09:00)
[2021-09-01] MEDS: MIRALAX 17 GM POWD.PACK PO SCH (09:00)
[2021-09-01] MEDS: GABAPENTIN 100 MG CAPSULE PO SCH ×2 (09:00→20:26)
[2021-09-01] MEDS: FOLIC ACID 1 MG TABLET PO SCH (09:00)
[2021-09-01] MEDS: AMIODARONE HCL 200 MG TABLET PO SCH (09:00)
[2021-09-01] MEDS: BUMETANIDE 1 MG TABLET PO SCH (09:00)
[2021-09-01] MEDS: ISOSORBIDE MONONITRATE 60 MG TAB.SR.24H PO SCH (09:01)
[2021-09-01] MEDS: METOPROLOL SUCCINATE XL 50 MG TAB.SR.24H PO SCH ×2 (09:01→20:25)
[2021-09-01] MEDS: APIXABAN 2.5 MG TABLET PO SCH ×2 (09:03→16:56)
[2021-09-01] MEDS: ENSURE ENLIVE (VAN) 240 ML LIQUID PO SCH ×2 (09:04→16:57)
--- NOTE | 2021-09-01 11:36 | NUR ---
Received Pt AAO X 4 able to let her needs known ,respiration even and unlabored at room air ,no distress noted. Patient up in a W/C able to ambulate with FWW to the BR brush her teeth and hair. Up with PT/OT for therapeutic exercise, No C/O of pain at this time , safety precautions in place will continue to monitor closely for comfort and safety
[2021-09-01 16:04] VITALS: BP 108/52
--- NOTE | 2021-09-01 16:13 | NUR ---
Notified DR Correa of pt C/O that Neurontin 100 mg at 0900 makes her feel drossy and she wants to d/c and only take the one at night . DR replied with new order to discontinue Neurontin 100 mg in Am order noted and carried out.
[2021-09-01 20:00] VITALS: BP 95/47
[2021-09-01] MEDS: QUETIAPINE FUMARATE 100 MG TABLET PO SCH (20:25)
[2021-09-01] MEDS: ATORVASTATIN 40 MG TABLET PO SCH (20:26)
--- NOTE | 2021-09-02 00:43 | NUR ---
AAOx4 Admitted for sepsis/UTI Needs attended. VSS.Ambulates to the BR with walker. Voiding freely. Denies any pain nor any discomfort. No acute distress noted. Continent of bowel and bladder. Will monitor patient.
[2021-09-02 04:00] VITALS: BP 119/61
[2021-09-02] MEDS: LEVOTHYROXINE SODIUM 25 MCG TABLET PO SCH (06:10)
[2021-09-02] MEDS: PANTOPRAZOLE SODIUM 40 MG TABLET.DR PO SCH (06:10)
[2021-09-02 06:35] LABS: MEAN CORPUSCULAR HEMOGLOBIN 27.7 uug (24.7-32.8); MEAN CORPUSCULAR VOLUME 84.3 fL (75.5-95.3); PLATELET COUNT (AUTO) 342 K/uL (179-408)
[2021-09-02 06:45] LABS: CREATININE 1.1 mg/dL (0.6-1.3); POTASSIUM 3.5 mmol/L (3.5-5.1)
[2021-09-02] MEDS: MIRALAX 17 GM POWD.PACK PO SCH (09:00)
[2021-09-02 09:43] VITALS: BP 122/62
[2021-09-02] MEDS: FLUTICASONE PROP NASAL SPRAY 16 GM BOTTLE NS SCH (09:47)
[2021-09-02] MEDS: DULOXETINE 60 MG CAPSULE.DR PO SCH (09:47)
[2021-09-02] MEDS: OMEGA-3 FATTY ACIDS/FISH OIL CAPSULE PO SCH ×2 (09:47→17:27)
[2021-09-02] MEDS: ISOSORBIDE MONONITRATE 60 MG TAB.SR.24H PO SCH (09:47)
[2021-09-02] MEDS: FOLIC ACID 1 MG TABLET PO SCH (09:48)
[2021-09-02] MEDS: ZINC SULFATE 220 MG CAPSULE PO SCH (09:51)
[2021-09-02] MEDS: APIXABAN 2.5 MG TABLET PO SCH ×2 (09:51→17:28)
[2021-09-02] MEDS: AMIODARONE HCL 200 MG TABLET PO SCH (09:52)
[2021-09-02] MEDS: BUMETANIDE 1 MG TABLET PO SCH (09:52)
[2021-09-02] MEDS: CALCIUM CARB/VITAMIN D 500MG-200UNITS TABLET PO SCH (09:52)
[2021-09-02] MEDS: DOCUSATE SODIUM 100 MG CAPSULE PO SCH ×2 (09:52→17:27)
[2021-09-02] MEDS: CLOPIDOGREL 75 MG TABLET PO SCH (09:53)
[2021-09-02] MEDS: METOPROLOL SUCCINATE XL 50 MG TAB.SR.24H PO SCH ×2 (09:53→21:56)
[2021-09-02] MEDS: ENSURE ENLIVE (VAN) 240 ML LIQUID PO SCH ×2 (09:54→17:28)
--- NOTE | 2021-09-02 17:58 | NUR ---
Pt Remain AAO X 4 able to let her needs known ,respiration even and unlabored at room air ,no distress noted. Patient up in a W/C able to ambulate with FWW to the BR. Up with PT/OT for therapeutic exercise, No C/O of pain during the shift , safety precautions in place will continue to monitor closely for comfort and safety
[2021-09-02 20:00] VITALS: BP 134/32
[2021-09-02] MEDS: ATORVASTATIN 40 MG TABLET PO SCH (21:53)
[2021-09-02] MEDS: GABAPENTIN 100 MG CAPSULE PO SCH (21:55)
[2021-09-02] MEDS: QUETIAPINE FUMARATE 100 MG TABLET PO SCH (21:55)
[2021-09-03] MEDS: TRAMADOL HCL 50 MG TABLET PO PRN (02:14)
[2021-09-03 04:00] VITALS: BP 130/55
[2021-09-03] MEDS: LEVOTHYROXINE SODIUM 25 MCG TABLET PO SCH (06:14)
[2021-09-03] MEDS: PANTOPRAZOLE SODIUM 40 MG TABLET.DR PO SCH (06:14)
[2021-09-03] MEDS: MIRALAX 17 GM POWD.PACK PO SCH (09:12)
[2021-09-03] MEDS: METOPROLOL SUCCINATE XL 50 MG TAB.SR.24H PO SCH ×2 (09:15→20:07)
[2021-09-03] MEDS: OMEGA-3 FATTY ACIDS/FISH OIL CAPSULE PO SCH ×2 (09:15→17:18)
[2021-09-03] MEDS: ISOSORBIDE MONONITRATE 60 MG TAB.SR.24H PO SCH (09:15)
[2021-09-03] MEDS: BUMETANIDE 1 MG TABLET PO SCH (09:16)
[2021-09-03] MEDS: DULOXETINE 60 MG CAPSULE.DR PO SCH (09:16)
[2021-09-03] MEDS: DOCUSATE SODIUM 100 MG CAPSULE PO SCH ×2 (09:16→17:18)
[2021-09-03] MEDS: FOLIC ACID 1 MG TABLET PO SCH (09:16)
[2021-09-03] MEDS: AMIODARONE HCL 200 MG TABLET PO SCH (09:18)
[2021-09-03] MEDS: CLOPIDOGREL 75 MG TABLET PO SCH (09:18)
[2021-09-03] MEDS: ZINC SULFATE 220 MG CAPSULE PO SCH (09:18)
[2021-09-03] MEDS: CALCIUM CARB/VITAMIN D 500MG-200UNITS TABLET PO SCH (09:18)
[2021-09-03] MEDS: ENSURE ENLIVE (VAN) 240 ML LIQUID PO SCH ×2 (09:20→17:22)
[2021-09-03] MEDS: APIXABAN 2.5 MG TABLET PO SCH ×2 (09:20→17:21)
[2021-09-03] MEDS: FLUTICASONE PROP NASAL SPRAY 16 GM BOTTLE NS SCH (09:26)
[2021-09-03 17:05] VITALS: BP 131/53
[2021-09-03] MEDS: GABAPENTIN 100 MG CAPSULE PO SCH (20:06)
[2021-09-03] MEDS: ATORVASTATIN 40 MG TABLET PO SCH (20:06)
[2021-09-03] MEDS: QUETIAPINE FUMARATE 100 MG TABLET PO SCH (20:06)
[2021-09-03 20:27] VITALS: BP 132/41
[2021-09-04 04:36] VITALS: BP 119/38
[2021-09-04] MEDS: PANTOPRAZOLE SODIUM 40 MG TABLET.DR PO SCH (06:17)
[2021-09-04] MEDS: LEVOTHYROXINE SODIUM 25 MCG TABLET PO SCH (06:17)
[2021-09-04 08:52] VITALS: BP 119/38
[2021-09-04] MEDS: METOPROLOL SUCCINATE XL 50 MG TAB.SR.24H PO SCH ×3 (09:00→20:22)
[2021-09-04] MEDS: CALCIUM CARB/VITAMIN D 500MG-200UNITS TABLET PO SCH (09:00)
[2021-09-04] MEDS: ISOSORBIDE MONONITRATE 60 MG TAB.SR.24H PO SCH ×2 (09:00→09:14)
[2021-09-04] MEDS: DULOXETINE 60 MG CAPSULE.DR PO SCH (09:13)
[2021-09-04] MEDS: BUMETANIDE 1 MG TABLET PO SCH (09:13)
[2021-09-04] MEDS: OMEGA-3 FATTY ACIDS/FISH OIL CAPSULE PO SCH ×2 (09:13→16:37)
[2021-09-04] MEDS: DOCUSATE SODIUM 100 MG CAPSULE PO SCH ×2 (09:13→16:37)
[2021-09-04] MEDS: ZINC SULFATE 220 MG CAPSULE PO SCH (09:13)
[2021-09-04] MEDS: FOLIC ACID 1 MG TABLET PO SCH (09:13)
[2021-09-04] MEDS: CLOPIDOGREL 75 MG TABLET PO SCH (09:13)
[2021-09-04] MEDS: APIXABAN 2.5 MG TABLET PO SCH ×2 (09:15→16:40)
[2021-09-04] MEDS: MIRALAX 17 GM POWD.PACK PO SCH (09:16)
[2021-09-04] MEDS: ENSURE ENLIVE (VAN) 240 ML LIQUID PO SCH ×2 (09:16→16:38)
[2021-09-04] MEDS: FLUTICASONE PROP NASAL SPRAY 16 GM BOTTLE NS SCH (09:17)
[2021-09-04] MEDS: TRAMADOL HCL 50 MG TABLET PO PRN (09:31)
[2021-09-04 20:00] VITALS: BP 153/47
--- NOTE | 2021-09-04 20:00 | NUR ---
NSG: Received patient lying on bed, alert and oriented x4, no respiratory distress, no complaint of pain, Safety precautions provided, call light placed within reach.
[2021-09-04] MEDS: ATORVASTATIN 40 MG TABLET PO SCH (20:22)
[2021-09-04] MEDS: QUETIAPINE FUMARATE 100 MG TABLET PO SCH (20:23)
[2021-09-04] MEDS: GABAPENTIN 100 MG CAPSULE PO SCH (20:23)
--- NOTE | 2021-09-05 00:10 | NUR ---
Pt comfortable in bed. AAO x 4. No complaints of pain. Safety measures maintained. All needs attended. Will continue to monitor.
[2021-09-05] MEDS: TRAMADOL HCL 50 MG TABLET PO PRN (01:17)
--- NOTE | 2021-09-05 02:20 | NUR ---
Pt complained of pain on R shoulder and arm with 8/10 pain score. Tramadol given with relief.
[2021-09-05 04:00] VITALS: BP 130/60
[2021-09-05] MEDS: PANTOPRAZOLE SODIUM 40 MG TABLET.DR PO SCH (06:12)
[2021-09-05] MEDS: LEVOTHYROXINE SODIUM 25 MCG TABLET PO SCH (06:12)
[2021-09-05 07:05] LABS: HEMATOCRIT 25.9 % (31.2-41.9); MEAN CORPUSCULAR VOLUME 83.8 fL (75.5-95.3); PLATELET COUNT (AUTO) 338 K/uL (179-408)
[2021-09-05 07:23] LABS: BILIRUBIN,TOTAL 0.3 mg/dL (0.2-1.0); CREATININE 1.1 mg/dL (0.6-1.3); PHOSPHOROUS 3.7 mg/dL (2.5-4.9); POTASSIUM 3.9 mmol/L (3.5-5.1); TOTAL PROTEIN, SERUM 6.6 g/dL (6.4-8.2)
[2021-09-05 07:39] LABS: THYROID STIMULATING HORMONE 5.74 mIU/mL (0.358-3.740)
[2021-09-05 08:45] VITALS: BP 124/39
[2021-09-05] MEDS: BUMETANIDE 1 MG TABLET PO SCH (09:16)
[2021-09-05] MEDS: MIRALAX 17 GM POWD.PACK PO SCH (09:17)
[2021-09-05] MEDS: CLOPIDOGREL 75 MG TABLET PO SCH (09:17)
[2021-09-05] MEDS: ZINC SULFATE 220 MG CAPSULE PO SCH (09:17)
[2021-09-05] MEDS: CALCIUM CARB/VITAMIN D 500MG-200UNITS TABLET PO SCH (09:17)
[2021-09-05] MEDS: DOCUSATE SODIUM 100 MG CAPSULE PO SCH ×2 (09:17→16:18)
[2021-09-05] MEDS: OMEGA-3 FATTY ACIDS/FISH OIL CAPSULE PO SCH ×2 (09:18→16:18)
[2021-09-05] MEDS: DULOXETINE 60 MG CAPSULE.DR PO SCH (09:18)
[2021-09-05] MEDS: FOLIC ACID 1 MG TABLET PO SCH (09:18)
[2021-09-05] MEDS: ISOSORBIDE MONONITRATE 60 MG TAB.SR.24H PO SCH (09:19)
[2021-09-05] MEDS: METOPROLOL SUCCINATE XL 50 MG TAB.SR.24H PO SCH ×2 (09:20→20:25)
[2021-09-05] MEDS: ENSURE ENLIVE (VAN) 240 ML LIQUID PO SCH ×2 (09:28→16:21)
[2021-09-05] MEDS: APIXABAN 2.5 MG TABLET PO SCH ×2 (09:28→16:18)
[2021-09-05] MEDS: FLUTICASONE PROP NASAL SPRAY 16 GM BOTTLE NS SCH (09:29)
--- NOTE | 2021-09-05 12:30 | NUR ---
DR COLLAZO REHAB DOCTOR HERE TO SEE PATIENT WITH NO NEW ORDERS AT THIS TIME.
--- NOTE | 2021-09-05 14:57 | NUR ---
D/C PLANNING PER THE ENVIRONMENTAL HEALTH AIDE PATIENT NEEDS A RAPID COVID TEST PRIOR TO DISCHARGE TOMORROW DR URENA AWARE WITH NEW ORDERS AND NOTED.
[2021-09-05 16:13] VITALS: BP 129/51
--- NOTE | 2021-09-05 17:37 | NUR ---
RAPID COVID TEST IS NEGATIVE PER LAB PATIENT NOTIFIED.
[2021-09-05 20:03] VITALS: BP 104/45
[2021-09-05] MEDS: ATORVASTATIN 40 MG TABLET PO SCH (20:23)
[2021-09-05] MEDS: QUETIAPINE FUMARATE 100 MG TABLET PO SCH (20:23)
[2021-09-05] MEDS: GABAPENTIN 100 MG CAPSULE PO SCH (20:23)
[2021-09-06 04:03] VITALS: BP 110/45
[2021-09-06] MEDS: LEVOTHYROXINE SODIUM 25 MCG TABLET PO SCH (06:20)
[2021-09-06] MEDS: PANTOPRAZOLE SODIUM 40 MG TABLET.DR PO SCH (06:20)
[2021-09-06 07:37] VITALS: BP 138/49
[2021-09-06] MEDS: MIRALAX 17 GM POWD.PACK PO SCH (08:30)
[2021-09-06] MEDS: DOCUSATE SODIUM 100 MG CAPSULE PO SCH ×2 (08:31→16:08)
[2021-09-06] MEDS: FOLIC ACID 1 MG TABLET PO SCH (08:31)
[2021-09-06] MEDS: ZINC SULFATE 220 MG CAPSULE PO SCH (08:31)
[2021-09-06] MEDS: OMEGA-3 FATTY ACIDS/FISH OIL CAPSULE PO SCH ×2 (08:31→16:08)
[2021-09-06] MEDS: CALCIUM CARB/VITAMIN D 500MG-200UNITS TABLET PO SCH (08:31)
[2021-09-06] MEDS: DULOXETINE 60 MG CAPSULE.DR PO SCH (08:31)
[2021-09-06] MEDS: CLOPIDOGREL 75 MG TABLET PO SCH (08:31)
[2021-09-06] MEDS: ISOSORBIDE MONONITRATE 60 MG TAB.SR.24H PO SCH (08:32)
[2021-09-06] MEDS: BUMETANIDE 1 MG TABLET PO SCH (08:32)
[2021-09-06] MEDS: METOPROLOL SUCCINATE XL 50 MG TAB.SR.24H PO SCH ×2 (08:33→20:58)
[2021-09-06] MEDS: FLUTICASONE PROP NASAL SPRAY 16 GM BOTTLE NS SCH (08:33)
[2021-09-06] MEDS: ENSURE ENLIVE (VAN) 240 ML LIQUID PO SCH ×2 (08:34→16:08)
[2021-09-06] MEDS: APIXABAN 2.5 MG TABLET PO SCH ×2 (08:43→16:06)
[2021-09-06 15:44] VITALS: BP 137/52
--- NOTE | 2021-09-06 18:58 | NUR ---
patient discharging tomorrow, sitting with family in the patio down stairs, endorsed accordingly
[2021-09-06 20:38] VITALS: BP 160/68
[2021-09-06] MEDS: GABAPENTIN 100 MG CAPSULE PO SCH (20:57)
[2021-09-06] MEDS: QUETIAPINE FUMARATE 100 MG TABLET PO SCH (20:57)
[2021-09-06] MEDS: ATORVASTATIN 40 MG TABLET PO SCH (21:01)
[2021-09-06] MEDS: TRAMADOL HCL 50 MG TABLET PO PRN (23:57)
--- NOTE | 2021-09-07 04:07 | NUR ---
AAOx4 Admitted for sepsis/UTI Needs attended. VSS Kept comfortable. Tolerated po meds well. Continent of bowel and bladder. Medicated for pain as needed. Possible discharge to home today.
[2021-09-07 04:40] VITALS: BP 116/48
[2021-09-07] MEDS: LEVOTHYROXINE SODIUM 25 MCG TABLET PO SCH (06:04)
[2021-09-07] MEDS: PANTOPRAZOLE SODIUM 40 MG TABLET.DR PO SCH (06:04)
[2021-09-07 07:29] VITALS: BP 128/42
[2021-09-07] MEDS: DULOXETINE 60 MG CAPSULE.DR PO SCH (08:22)
[2021-09-07] MEDS: ZINC SULFATE 220 MG CAPSULE PO SCH (08:31)
[2021-09-07] MEDS: CALCIUM CARB/VITAMIN D 500MG-200UNITS TABLET PO SCH (08:32)
[2021-09-07] MEDS: DOCUSATE SODIUM 100 MG CAPSULE PO SCH (08:32)
[2021-09-07] MEDS: FOLIC ACID 1 MG TABLET PO SCH (08:32)
[2021-09-07] MEDS: OMEGA-3 FATTY ACIDS/FISH OIL CAPSULE PO SCH (08:32)
[2021-09-07] MEDS: CLOPIDOGREL 75 MG TABLET PO SCH (08:32)
[2021-09-07] MEDS: BUMETANIDE 1 MG TABLET PO SCH (08:32)
[2021-09-07] MEDS: METOPROLOL SUCCINATE XL 50 MG TAB.SR.24H PO SCH (08:34)
[2021-09-07 08:36] VITALS: BP 124/44
[2021-09-07] MEDS: ISOSORBIDE MONONITRATE 60 MG TAB.SR.24H PO SCH (08:36)
[2021-09-07] MEDS: FLUTICASONE PROP NASAL SPRAY 16 GM BOTTLE NS SCH (08:37)
[2021-09-07] MEDS: ENSURE ENLIVE (VAN) 240 ML LIQUID PO SCH (08:37)
[2021-09-07] MEDS: MIRALAX 17 GM POWD.PACK PO SCH (08:37)
[2021-09-07] MEDS: APIXABAN 2.5 MG TABLET PO SCH (08:39)
--- NOTE | 2021-09-07 10:30 | NUR ---
patient discharged to assisting living as planned, picked up by ambulance, instructions given, patient verbalized understanding of each medication, belongings are sent with patient. ID removed, No IV access on patient. stable condition, ambulatory with fww. no distress noted.
== END 2021-09-07 10:30 | disposition home health service (06) | DRG 872 ==
PROVIDERS: ADMIT Physical Medicine & Rehabilitation Pain Medicine; ATTEND Physical Medicine & Rehabilitation Pain Medicine
DX: A41.9 Sepsis, unspecified organism (principal); I50.32 Chronic diastolic (congestive) heart failure; N17.9 Acute kidney failure, unspecified; E44.0 Moderate protein-calorie malnutrition; N12 Tubulo-interstitial nephritis, not specified as acute or chronic; E78.5 Hyperlipidemia, unspecified; E88.09 Other disorders of plasma-protein metabolism, not elsewhere classified; F32.A Depression, unspecified; I11.0 Hypertensive heart disease with heart failure; J44.9 Chronic obstructive pulmonary disease, unspecified; K21.9 Gastro-esophageal reflux disease without esophagitis; M06.9 Rheumatoid arthritis, unspecified; M19.90 Unspecified osteoarthritis, unspecified site; R32 Unspecified urinary incontinence; Z79.01 Long term (current) use of anticoagulants; D50.9 Iron deficiency anemia, unspecified; I25.10 Atherosclerotic heart disease of native coronary artery without angina pectoris; I48.0 Paroxysmal atrial fibrillation; Z98.61 Coronary angioplasty status; M25.512 Pain in left shoulder; M79.602 Pain in left arm; R53.81 Other malaise; Z88.5 Allergy status to narcotic agent; Z88.8 Allergy status to other drugs, medicaments and biological substances; Z91.048 Other nonmedicinal substance allergy status; R19.5 Other fecal abnormalities
CPT/HCPCS: 36415; 82378; 83550; 83735; 84100; 84443; 85025; 97161; 97535-GO-CO; A9150; J0696; J3535